=== PATIENT | female | born 1965 | race Caucasian/White ===

== ENCOUNTER 2019-02-18 03:24 | Outpatient (CLI) | payer BC | END 2019-02-18 23:59 | disposition home or self-care (01) | LOC: DIABETIC 03:24 | PROVIDERS: ATTEND Specialist | DX: E11.65 Type 2 diabetes mellitus with hyperglycemia (principal); Z79.82 Long term (current) use of aspirin; Z79.899 Other long term (current) drug therapy; Z88.8 Allergy status to other drugs, medicaments and biological substances | CPT/HCPCS: G0108 ==

== ENCOUNTER 2019-05-20 00:51 | Outpatient (CLI) | payer BC | END 2019-05-20 23:59 | disposition home or self-care (01) | LOC: DIABETIC 00:51 | PROVIDERS: ATTEND Specialist | DX: E11.65 Type 2 diabetes mellitus with hyperglycemia (principal) | CPT/HCPCS: G0108 ==

== ENCOUNTER 2019-08-26 11:46 | Emergency (ER) | payer BC ==
[~2019-08-26] VITALS: Ht 162.6 cm; Wt 78.0 kg
[2019-08-26 14:07] LABS: BASOPHILS % (AUTO) 0.4 % (0-1); EOSINOPHILS # (AUTO) 0.2 X10'3 (0-0.9); EOSINOPHILS % (AUTO) 1.5 % (0-6); HEMATOCRIT 41.8 % (35.0-45.0); HEMOGLOBIN 13.8 g/dl (12.0-16.0); LYMPHOCYTES % (AUTO) 19.7 % (21-51); MEAN CORPUSCULAR HEMOGLOBIN 29.2 PG (27.0-31.0); MEAN CORPUSCULAR HGB CONC 33.1 g/dL (33.0-36.5); MEAN PLATELET VOLUME 8.1 FL (7.4-10.4); MONOCYTES # (AUTO) 0.9 X10'3 (0-0.9); MONOCYTES % (AUTO) 8.7 % (2-12); NEUTROPHILS # (AUTO) 7.2 X10'3 (1.8-7.7); NEUTROPHILS % (AUTO) 69.7 % (42-75); PLATELET COUNT 250 X10'3 (140-440); RED BLOOD COUNT 4.75 X10'6 (4.20-5.60); RED CELL DISTRIBUTION WIDTH 13.8 % (11.5-14.5); WHITE BLOOD COUNT 10.3 X10'3 (4.5-11.0)
[2019-08-26] MEDS ORDERED: normal saline 1000ML IV soln IVB ONE (14:20)
[2019-08-26] MEDS ORDERED: iohexol 300mg/ml 100ml inj. ONE (14:21)
[2019-08-26 14:22] LABS: ALANINE AMINOTRANSFERASE 16 U/L (12-78); ALBUMIN 3.3 G/DL (3.4-5.0); ALBUMIN/GLOBULIN RATIO 0.9 (1.1-1.5); ALKALINE PHOSPHATASE 30 IU/L (46-116); ANION GAP 9 (8-16); ASPARTATE AMINO TRANSFERASE 9 U/L (10-37); BILIRUBIN,TOTAL 0.4 MG/DL (0.1-1.0); BLOOD UREA NITROGEN 21 MG/DL (7-18); BUN/CREATININE RATIO 29.6 (6.6-38.0); CALCIUM 9.4 MG/DL (8.5-10.1); CHLORIDE 102 MMOL/L (99-107); CREATININE 0.71 MG/DL (0.40-0.90); GLUCOSE 262 MG/DL (70-104); POTASSIUM 4.4 MMOL/L (3.5-5.1); SODIUM 138 MMOL/L (135-145); TOTAL CARBON DIOXIDE 26.9 MMOL/L (24-32); TOTAL PROTEIN 7.1 G/DL (6.4-8.2); eGFR 86 ML/MIN
[2019-08-26] MEDS ORDERED: ampicillin/sulbac 3gm/NS 100ml 100 ML IV ONE (14:54)
[2019-08-26] MEDS ORDERED: MESSAGE TO NURSING PO ONE (14:55)
[2019-08-26] MEDS ORDERED: NAPR-56 PO (14:55)
[2019-08-26] MEDS ORDERED: CEPH500C5 PO (14:55)
[2019-08-26] MEDS ORDERED: ketorolac tromethamine 15mg/ml inj. IV ONE (15:05)
[2019-08-26 16:42] VITALS: BP 144/83
[2019-08-26 16:58] LABS: CLARITY,URINE CLEAR (Clear); COLOR,URINE YELLOW (Yellow); GLUCOSE, URINE >=1000 mg/dl (Neg); KETONES,URINE NEGATIVE (Neg); LEUKOCYTE ESTERASE ,URINE NEGATIVE (Neg); NITRITES, URINE NEGATIVE (Neg); OCCULT BLOOD,URINE NEGATIVE (Neg); PROTEIN,URINE NEGATIVE (Neg); UROBILINOGEN,URINE 0.2 E.U/dL (0.2-1.0)
[2019-08-26 17:23] LABS: UA COLLECTION TYPE CLN CATCH MIDSTREAM
[2019-08-26 17:24] LABS: BACTERIA,URINE NONE SEEN /HPF (Neg); RBC,URINE NONE SEEN /HPF (0-2); SQUAMOUS EPITHELIAL CELL,UR FEW /LPF (FEW); WBC,URINE 0-4 /HPF (0-4)
== END 2019-08-26 16:45 | disposition home or self-care (01) ==
LOC: ER 11:47
DX: K91.89 Other postprocedural complications and disorders of digestive system (principal); L03.316 Cellulitis of umbilicus; R10.9 Unspecified abdominal pain; E78.00 Pure hypercholesterolemia, unspecified; E11.9 Type 2 diabetes mellitus without complications; Z90.710 Acquired absence of both cervix and uterus; Z98.890 Other specified postprocedural states; Z79.2 Long term (current) use of antibiotics; Z79.899 Other long term (current) drug therapy; Y83.8 Other surgical procedures as the cause of abnormal reaction of the patient, or of later complication, without mention of misadventure at the time of the procedure; Y92.89 Other specified places as the place of occurrence of the external cause
CPT/HCPCS: 36415; 74177; 80053; 81001; 85025; 96365; 96375; 99285; J1885; J7030; Q9967; J0295

== ENCOUNTER 2022-12-25 08:59 | Inpatient (IN) | payer BC ==
[2022-12-16 15:31] LABS: BASOPHILS # (AUTO) 0.1 X10'3 (0-0.2); BASOPHILS % (AUTO) 0.8 % (0-1); EOSINOPHILS # (AUTO) 0.1 X10'3 (0-0.9); EOSINOPHILS % (AUTO) 0.6 % (0-6); LYMPHOCYTES % (AUTO) 17.6 % (21-51); MEAN CORPUSCULAR HEMOGLOBIN 31.1 PG (27.0-31.0); MEAN CORPUSCULAR HGB CONC 33.4 g/dL (33.0-36.5); MEAN PLATELET VOLUME 7.8 FL (7.4-10.4); MONOCYTES # (AUTO) 0.8 X10'3 (0-0.9); MONOCYTES % (AUTO) 7.3 % (2-12); NEUTROPHILS # (AUTO) 8.2 X10'3 (1.8-7.7); NEUTROPHILS % (AUTO) 73.7 % (42-75); PRE OP HEMATOCRIT 40.5 % (35.0-45.0); PRE OP HEMOGLOBIN 13.5 g/dL (12.0-16.0); PRE OP PLATELET COUNT 318 X10'3 (140-440); PRE OP WHITE BLOOD COUNT 11.1 10'3 (4.8-10.8); RED BLOOD COUNT 4.35 X10'6 (4.20-5.60); RED CELL DISTRIBUTION WIDTH 13.8 % (11.5-14.5)
[2022-12-16 15:47] LABS: ALBUMIN 4.2 G/DL (3.4-5.0); ALBUMIN/GLOBULIN RATIO 1.1 (1.1-1.5); ALKALINE PHOSPHATASE 29 IU/L (46-116); BLOOD UREA NITROGEN 17 MG/DL (7-18); CALCIUM 9.6 MG/DL (8.5-10.1); CHLORIDE 101 MMOL/L (99-107); CREATININE 0.85 MG/DL (0.40-0.90); PRE OP ALT 35 U/L (30-65); PRE OP ANION GAP 11 (8-16); PRE OP AST 19 U/L (10-37); PRE OP BILIRUB, TOTAL 0.5 MG/DL (0.0-1.0); PRE OP GLUCOSE 103 MG/DL (70-104); PRE OP POTASSIUM 4.1 MMOL/L (3.4-5.1); PRE OP SODIUM 138 MMOL/L (135-145); TOTAL CARBON DIOXIDE 26.1 MMOL/L (24-32); TOTAL PROTEIN 7.9 G/DL (6.4-8.2); eGFR 69 ML/MIN
[2022-12-16 16:32] LABS: HEMOGLOBIN A1C 7.3 % (4.5-6.2)
[~2022-12-25] VITALS: Ht 162.6 cm; Wt 81.0 kg
[2022-12-25] VITALS (30 sets, daily range): BP systolic 113–142; BP diastolic 60–84; PULSE 88–116; RESP 11–18; TEMP 97.4–98; O2SAT 89–100
[~2022-12-25 08:59] MED LIST: GLYB5TAB7 PO; INSU300I SQ; MELA10TA2 PO; METF-900 PO; PANT40TA54 PO; RISA150P SQ; ROSU10TA28 PO; SPIR50TA5 PO; TIRZ7.5P SQ; cefazolin 2gm/D5W 100mL 100 ML IV ONE; famotidine 20mg tablet PO ONE; ringers solution, lacted 1,000 ML IV SCH; tranexamic acid inj. 1,000 MG in normal saline IV soln 100ML IV ONE; vancomycin 1,500 MG in NS 300ml IV soln IV ONE
[2022-12-25] MEDS ORDERED: morphine 4 MG/ML inj SYRINge IV ONE (11:16)
[2022-12-25] MEDS ORDERED: vancomycin 1,000mg inj ONE (11:17)
[2022-12-25] MEDS ORDERED: epiNEPHrine 1 mg/ml inj ONE (11:17)
[2022-12-25] MEDS ORDERED: ROPIVAcaine 0.5% (5mg/ml) 30ml vial ONE ×2 (11:17→11:45)
[2022-12-25] MEDS ORDERED: MIDAZolam 1 MG/ML 5ML VIAL ONE (11:43)
[2022-12-25] MEDS ORDERED: fentaNYL /PF 50mcg/ml 5ml ampule ONE (11:43)
[2022-12-25] MEDS ORDERED: propofol inj 20 ML IV ONE ×2 (11:45→11:46)
[2022-12-25] MEDS ORDERED: LIDOcaine 2% (20mg/ml) 5ml vial ONE (11:45)
[2022-12-25] MEDS ORDERED: sevoflurane 250ml liquid IH ONE (12:06)
[2022-12-25] MEDS ORDERED: dexamethasone sod phosphate 10mg/ml inj ONE (12:06)
[2022-12-25] MEDS ORDERED: ondansetron/PF 4mg/2ml inj ONE (12:38)
[2022-12-25] MEDS ORDERED: acetaminophen 1,000mg/100ml IV 100 ML IV ONE (12:52)
[2022-12-25] MEDS ORDERED: ketorolac trometh. 30mg/ml inj. ONE (12:52)
[2022-12-25] MEDS ORDERED: ROPIVAcaine 0.5% (5mg/ml) 30ml vial IJ ONE ×2 (12:54→15:18)
[2022-12-25] MEDS ORDERED: ringers solution, lacted 1,000 ML IV SCH (13:20)
[2022-12-25] MEDS ORDERED: morphine 2 MG/ML inj. syringe IV PRN (13:20)
[2022-12-25] MEDS ORDERED: ondansetron/PF 4mg/2ml inj IV PRN ×2 (13:20→15:30)
[2022-12-25] MEDS ORDERED: hydrALAZINE 20mg/ml inj. IV PRN (13:20)
[2022-12-25] MEDS ORDERED: labetalol 20mg/4ml (5mg/ml) syringe IV PRN (13:20)
[2022-12-25] MEDS ORDERED: fentaNYL/PF 50MCG/1 ML 2ML syringe IV PRN ×2 (13:20)
[2022-12-25] MEDS ORDERED: ROPIVAcaine 0.2% (10 MG/5 ML) BOLUS INJECTION ADDCANAL PRN (13:20)
[2022-12-25] MEDS ORDERED: LIDOcaine 0.5% (5mg/ml) 50ml vial ONE (13:53)
[2022-12-25] MEDS ORDERED: labetalol 20mg/4ml (5mg/ml) syringe IV ONE (14:06)
--- NOTE | 2022-12-25 15:12 | NUR ---
Received from OR via HOSPITAL BED TO RR 6, accompanied by Anesthesiologist GIOVANNI and report given by Anesthesiologist. PT PRESENTS ON 6L VIA MASK. NO S/S OF DISTRESS. LEFT WRIST DRESSING CDI, ICE AND ELEVATED. LEFT KNEE DRESSING CDI, ICE APPLIED AND ELEVATED. LR RUNNING THRU PIV. SCD'S ON. WILL CONTINUE TO ASSESS
[2022-12-25] MEDS ORDERED: oxyCODONE IR 5mg (immed. release) tablet PO PRN (15:30)
[2022-12-25] MEDS ORDERED: bisacodyl 10mg suppository rectal RC PRN (15:30)
[2022-12-25] MEDS ORDERED: diphenhydrAMINE 25mg capsule PO PRN ×2 (15:30)
[2022-12-25] MEDS ORDERED: acetaminophen 325mg tablet PO PRN (15:30)
[2022-12-25] MEDS ORDERED: naloxone 0.4 mg/ml inj IV PRN (15:30)
[2022-12-25] MEDS ORDERED: magnesium hydroxide 30ml (MOM) UD suspension PO PRN (15:30)
[2022-12-25] MEDS ORDERED: HYDROmorphone inj. 0.5 MG/0.5 ML DISP.SYRIN IV PRN (15:30)
[2022-12-25] MEDS: ROPIVAcaine 0.2%/PF PUMP/bolus 545 ML ADDCANAL SCH (15:53)
[2022-12-25] MEDS: morphine 4 MG/ML inj SYRINge IV PRN ×2 (16:01→16:31)
[2022-12-25] MEDS: ceFAZolin/D5W- 1GM premix 50 ML IV SCH (17:22)
--- NOTE | 2022-12-25 18:05 | NUR ---
Received patient report from Pearl ERAZO via phone. All questions answered. Pearl will hold patient til 1830 due to shift change then bring patient up.
--- NOTE | 2022-12-25 18:30 | NUR ---
Patient in room ORTHO 4023. I have received report from KACEY Nelson and had the opportunity to ask questions and assume patient care.
--- NOTE | 2022-12-25 18:32 | NUR ---
PT STABLE FOR TRANSFER PER MD ORDERS. REPORT CALLED TO KACEY ORTIZ, (TAKING REPORT FOR PRIMARY NURSE JESSA). ALL QUESTIONS, COMMENTS AND CONCERNS WERE ANSWERED AT THIS TIME. PAIN IS TOLERABLE PER PATIENT. NO S/S DISTRESS NOTED. DRESSINGS TO LEFT WRIST AND LEFT KNEE UNCHANGED AND ICE STILL APPLIED. PATIENT TAKEN TO ORTHO FLOOR ROOM 4026J WITH ALL BELONGINGS AND HOOKED UP TO ALL MONITORS IN ROOM AND REPORT GIVEN TO KACEY GERMAIN WHO HAS TAKEN OVER PATIENT CARE. TXA WILL BE BROUGHT UP TO THE FLOOR FOR ADMINISTRATION.
--- NOTE | 2022-12-25 18:35 | NUR ---
Problems reprioritized. Patient report given, questions answered & plan of care reviewed with Yvrose ERAZO, patient still not on the floor room set up .
[2022-12-25] MEDS ORDERED: tranexamic acid inj. 800 MG in normal saline 100ml IV soln 92 ML IV ONE (19:00)
[2022-12-25] MEDS: potassium Cl 20mEq in NS 1,000 ML IV SCH (19:36)
[2022-12-25] MEDS ORDERED: vancomycin/NS 1 GM ADD-VANTAGE 250 ML IV SCH (20:00)
[2022-12-25] MEDS: gabapentin 300mg capsule PO SCH (21:39)
[2022-12-25] MEDS: acetaminophen 325mg tablet PO SCH (21:39)
[2022-12-25] MEDS: sennosides 8.6mg tablet PO SCH (21:40)
[2022-12-25] MEDS: oxyCODONE IR 5mg (immed. release) tablet PO PRN (21:54)
[2022-12-26] VITALS (7 sets, daily range): BP systolic 101–122; BP diastolic 47–71; PULSE 70–113; RESP 15–17; TEMP 97.8–98.9; O2SAT 93–97
[2022-12-26] MEDS: ceFAZolin/D5W- 1GM premix 50 ML IV SCH (00:45)
[2022-12-26] MEDS: potassium Cl 20mEq in NS 1,000 ML IV SCH (02:00)
[2022-12-26] MEDS: acetaminophen 325mg tablet PO SCH ×4 (02:15→20:03)
[2022-12-26] MEDS: oxyCODONE IR 5mg (immed. release) tablet PO PRN ×2 (02:16→07:37)
--- NOTE | 2022-12-26 06:30 | NUR ---
Patient in room ORTHO 4023. I have received report from Yvrose and had the opportunity to ask questions and assume patient care.
--- NOTE | 2022-12-26 06:30 | NUR ---
Problems reprioritized. Patient report given, questions answered & plan of care reviewed with KACEY Barrera.
[2022-12-26] MEDS: gabapentin 300mg capsule PO SCH ×3 (07:13→20:01)
[2022-12-26] MEDS: enoxaparin 40mg/0.4ml syringe SQ SCH (07:22)
[2022-12-26] MEDS ORDERED: normal saline 1000ml 1,000 ML IV ONE (10:40)
--- NOTE | 2022-12-26 11:07 | NUR ---
DM/Joint surgery consults: Pt s/p L knee surgery, L index finger trigger finger release, and L dorsal cheilectomy of the third carpal metacarpal joint hx T2DM A1C 7.3% w/ CGM per EMR. Pt/family seen by RD at bedside for written/verbal high protein/DM diet eds w/ RD contact information provided. Pt reports checks Glu routinely w/ CGM just started on new DM med w/ past two A1C's lowest it's ever been though does not have much knowledge regarding DM diet. Pt reports has had occasional lows in early AM has glucose tabs and candies/juice at bedside; RD encouraged pt to f/u w/ PCP if increase in these episodes. Pt reports doesn't eat breakfast; RD reviewed meal frequency, meal planning strategies, nutrition facts label reading, and carb portions w/ pt/family. RD encouraged pt/family to contact dietitian's office if further nutrition questions/concerns. Pt reports L hand is dominant hand though w/ surgery requests more finger foods, dislikes caffeine/broccoli/asparagus/corn/grean beans, and likes diet soda-dietary notified of preferences. Noted pt on regular diet; RD d/w RN regarding change to carb controlled diet if MD agreeable- now changed in EMR. Rec: 1. continue carb controlled diet; finger foods for ease of PO Addendum: 12/26/22 at [address] Amended: Links added.
[2022-12-26] MEDS: HYDROmorphone 1 mg/ml syringe IV PRN ×3 (13:18→21:32)
[2022-12-26] MEDS ORDERED: DEXTROSE 15 GM of carb/4 tabs (each vial/BOTTLE has 4 tablets) PO PRN ×2 (18:05)
[2022-12-26] MEDS ORDERED: MESSAGE TO PHARMACY PO ONE (18:05)
[2022-12-26] MEDS ORDERED: glucagon, human recombinant 1mg kit SUBCUT PRN (18:05)
[2022-12-26] MEDS ORDERED: dextrose 50%-water 50ml dispensing syringe IV PRN ×2 (18:05)
--- NOTE | 2022-12-26 18:30 | NUR ---
Patient in room ORTHO 4023. I have received report from KACEY Barrera and had the opportunity to ask questions and assume patient care.
--- NOTE | 2022-12-26 18:39 | NUR ---
Problems reprioritized. Patient report given, questions answered & plan of care reviewed with
[2022-12-26] MEDS: celeCOXIB 100mg capsule PO SCH (20:02)
[2022-12-26] MEDS: sennosides 8.6mg tablet PO SCH (20:03)
[2022-12-26] MEDS: insulin Lispro (HumaLOG) vial - multi-dose SQ SCH (20:10)
[2022-12-26] MEDS ORDERED: insulin glargine (Lantus) pen - multi-dose SQ SCH (21:00)
[2022-12-27] MEDS: acetaminophen 325mg tablet PO SCH ×3 (01:50→13:32)
[2022-12-27] MEDS: HYDROmorphone 1 mg/ml syringe IV PRN ×3 (01:50→11:45)
--- NOTE | 2022-12-27 06:26 | NUR ---
Problems reprioritized. Patient report given, questions answered & plan of care reviewed with KACEY Barrera.
[2022-12-27 06:51] VITALS: BP 124/65; PULSE 96; RESP 15; TEMP 98.3; O2SAT 99
[2022-12-27 07:00] VITALS: RESP 16; O2SAT 94
[2022-12-27] MEDS: gabapentin 300mg capsule PO SCH ×2 (07:56→13:32)
[2022-12-27] MEDS: celeCOXIB 100mg capsule PO SCH (07:56)
[2022-12-27] MEDS: enoxaparin 40mg/0.4ml syringe SQ SCH (07:56)
[2022-12-27] MEDS: insulin Lispro (HumaLOG) vial - multi-dose SQ SCH ×2 (09:38→13:44)
[2022-12-27 10:23] VITALS: BP 109/58; PULSE 97; RESP 14; TEMP 97.1; O2SAT 91
[2022-12-27 11:45] VITALS: RESP 18
[2022-12-27] MEDS: ROPIVAcaine 0.2%/PF PUMP/bolus 545 ML ADDCANAL SCH (14:53)
[2022-12-27] MEDS ORDERED: acetaminophen 325mg tablet PO PRN (15:30)
--- NOTE | 2022-12-27 16:33 | NUR ---
Pt discharged home with family. All belongings sent with pt. IV removed from pt. Pt left in stable condition
== END 2022-12-27 15:55 | disposition home or self-care (01) | DRG 470 ==
LOC: PAS 08:59 → ORTHO 4S 15:32
PROVIDERS: ADMIT Orthopaedic Surgery; ATTEND Orthopaedic Surgery
PROC: 0LN80ZZ Release Left Hand Tendon, Open Approach (ICD-10-PCS; 2022-12-25)
PROC: 0QBP0ZZ Excision of Left Metatarsal, Open Approach (ICD-10-PCS; 2022-12-25)
PROC: 0QSP04Z Reposition Left Metatarsal with Internal Fixation Device, Open Approach (ICD-10-PCS; 2022-12-25)
PROC: 3E0T3BZ Introduction of Anesthetic Agent into Peripheral Nerves and Plexi, Percutaneous Approach (ICD-10-PCS; 2022-12-25)
PROC: 3E0T33Z Introduction of Anti-inflammatory into Peripheral Nerves and Plexi, Percutaneous Approach (ICD-10-PCS; 2022-12-25)
PROC: 0SRD0JA Replacement of Left Knee Joint with Synthetic Substitute, Uncemented, Open Approach (ICD-10-PCS; principal; 2022-12-25 12:06)
DX: M17.12 Unilateral primary osteoarthritis, left knee (principal); M65.322 Trigger finger, left index finger; E11.9 Type 2 diabetes mellitus without complications
CPT/HCPCS: Z7506; Z7508; 36415; 73560; 80053; 82948; 83036; 85025; 87081; 93005; 97110; 97116; 97161; 97530; A4215; A4618; A6253; A6258; A6446; A6449; A7000; C1776; G0378; J0131; J0171; J0690; J1100; J1170; J1650; J1815; J1885; J2250; J2270; J2405; J2704; J2795; J3010; J3370; J3480; J3490; J7120; Q0163

== ENCOUNTER 2023-01-01 18:38 | Inpatient (IN) | payer BC ==
[~2023-01-01] VITALS: Ht 162.6 cm; Wt 81.4 kg
[~2023-01-01 18:38] MED LIST changes: -cefazolin 2gm/D5W 100mL 100 ML IV ONE; -famotidine 20mg tablet PO ONE; -ringers solution, lacted 1,000 ML IV SCH; -tranexamic acid inj. 1,000 MG in normal saline IV soln 100ML IV ONE; -vancomycin 1,500 MG in NS 300ml IV soln IV ONE
[2023-01-01 20:12] LABS: MEAN CORPUSCULAR HGB CONC 33.7 g/dL (33.0-36.5); MEAN PLATELET VOLUME 7.2 FL (7.4-10.4); WHITE BLOOD COUNT 10.2 X10'3 (4.5-11.0)
[2023-01-01 20:13] LABS: BASOPHILS # (AUTO) 0.1 X10'3 (0-0.2); BASOPHILS % (AUTO) 0.6 % (0-1); EOSINOPHILS # (AUTO) 0.2 X10'3 (0-0.9); EOSINOPHILS % (AUTO) 2.2 % (0-6); HEMATOCRIT 34.9 % (35.0-45.0); HEMOGLOBIN 11.8 g/dl (12.0-16.0); LYMPHOCYTES # (AUTO) 1.9 X10'3 (1.1-4.8); LYMPHOCYTES % (AUTO) 19.1 % (21-51); MEAN CORPUSCULAR HEMOGLOBIN 31.3 PG (27.0-31.0); MONOCYTES # (AUTO) 1.1 X10'3 (0-0.9); MONOCYTES % (AUTO) 10.6 % (2-12); NEUTROPHILS # (AUTO) 6.9 X10'3 (1.8-7.7); NEUTROPHILS % (AUTO) 67.5 % (42-75); PLATELET COUNT 370 X10'3 (140-440); RED BLOOD COUNT 3.75 X10'6 (4.20-5.60); RED CELL DISTRIBUTION WIDTH 14.2 % (11.5-14.5)
[2023-01-01 20:22] LABS: ALANINE AMINOTRANSFERASE 43 U/L (12-78); ALBUMIN 3.5 G/DL (3.4-5.0); ALBUMIN/GLOBULIN RATIO 0.9 (1.1-1.5); ALKALINE PHOSPHATASE 33 IU/L (46-116); ANION GAP 9 (8-16); ASPARTATE AMINO TRANSFERASE 43 U/L (10-37); BILIRUBIN,TOTAL 0.5 MG/DL (0.1-1.0); BLOOD UREA NITROGEN 13 MG/DL (7-18); BUN/CREATININE RATIO 17.8 (10.0-20.0); CALCIUM 9.7 MG/DL (8.5-10.1); CHLORIDE 101 MMOL/L (99-107); CREATININE 0.73 MG/DL (0.40-0.90); GLUCOSE 75 MG/DL (70-104); POTASSIUM 3.9 MMOL/L (3.5-5.1); SODIUM 139 MMOL/L (135-145); TOTAL CARBON DIOXIDE 28.6 MMOL/L (24-32); TOTAL PROTEIN 7.5 G/DL (6.4-8.2); eCRCL 75 ML/MIN; eGFR 83 ML/MIN
[2023-01-01 20:37] LABS: PLATELET ESTIMATE NORMAL; POLYCHROMASIA FEW
--- NOTE | 2023-01-01 23:37 | NUR ---
re checked blood glucose and provided 2 apple juices and grahm crackers patient is asymptomatic
--- NOTE | 2023-01-02 01:05 | NUR ---
provided patient 2 more apple juices and trurkey sandwich for low blood sugar patient Aox4 and GCS of 15 in [facility]
--- NOTE | 2023-01-02 01:22 | NUR ---
PT REQUESTS TO BE SEEN AND ADMITTED D/T RECENT SX LTKA AND L HAND. PT STATES SHE NEEDS TO BE ADMITTED SO THAT SHE CAN QUALIFY TO GO TO [facility]. PT STATES, "MY BLOOD SUGAR KEEPS DROPPING AND I DON'T KNOW WHY." THIS NURSE ASKED IF SHE IS EATING REGULARLY PT STATES, "NO BECAUSE NOBODY AT HOME WILL TAKE CARE OF ME." PT BECAME EMOTIONAL. PT ADMITS TO HAVING FAMILY AT HOME LIVING WITH HER. THIS NURSE OFFERED SUGGESTIONS LIKE KEEPING SNACKS AND DRINKS ON HER PERSON AT ALL TIMES. PT STATES, "I CANT HAVE FOOD IN MY ROOM IM IN MY BED DURING THE DAY." PT ADMITS THAT HER PMD AND INSURANCE COMPANY TOLD HER TO COME TO ED TO GET ADMITTED SO THAT SHE CAN QUALIFY FOR [facility] SERVICES. PT EDUCATED REGARDING MEETING MEDICAL CRITERIA FOR BEING ADMITTED. PT STATES, "I DO MEET CRITERIA BECAUSE MY BLOOD SUGAR KEEPS DROPPING." CURRENT BG 154. UPON NURSE AX PT ASKED IF SHE IS OR HAS BEEN EXPERIENCING PPP. PT DENIES. PPP FULLY EXPLAINED TO PT AND CONT TO DENY. PT IS ASYMPTOMATIC AT THIS TIME. A/O X4 ABLE TO CONVEY ALL NEEDS/ WANTS, VSS, DENIES PAIN, INDEPENDANT W/ TRANSFERS AND AMBULATION, CONTINENT OF B&B. CURRENTLY PRESCRIBED NORCO, CEPHALEXIN AND LOVENOX. PT ADMITS TO SELF ADMINISTRATION OF ALL MEDS W/ NO COMPLICATIONS.
[2023-01-02] MEDS ORDERED: morphine 4 MG/ML inj SYRINge IV ONE (03:25)
[2023-01-02] MEDS ORDERED: ondansetron/PF 4mg/2ml inj IV ONE (03:25)
[2023-01-02] MEDS ORDERED: normal saline 1000ml 1,000 ML IV ONE (03:30)
[2023-01-02] MEDS ORDERED: ketorolac trometh. 30mg/ml inj. IV ONE (03:30)
[2023-01-02] MEDS ORDERED: ketorolac tromethamine 15mg/ml inj. IV ONE (03:35)
[2023-01-02] MEDS ORDERED: iohexol 300mg/ml 100ml inj. ONE (03:49)
[2023-01-02 04:05] LABS: D-DIMER 1.22 MG/L FEU (0-0.50)
[2023-01-02] MEDS: MESSAGE TO NURSING PO SCH ×6 (04:10→09:10)
[2023-01-02] MEDS ORDERED: acetaminophen 650mg rectal suppository RC PRN (08:00)
[2023-01-02] MEDS ORDERED: potassium Cl 20 mEq SR tablet PO PRN ×2 (08:00)
[2023-01-02] MEDS ORDERED: magnesium Cl slow-release 64mg tablet PO PRN (08:00)
[2023-01-02] MEDS ORDERED: magnesium 2GM in 50ml NS 50 ML IV PRN (08:00)
[2023-01-02] MEDS ORDERED: ondansetron 4mg rapidly disintigrating tab PO PRN (08:00)
[2023-01-02] MEDS ORDERED: magnesium hydroxide 30ml (MOM) UD suspension PO PRN (08:00)
[2023-01-02] MEDS ORDERED: mag hydrox/Alum hydrox/simeth 30ml oral suspension PO PRN (08:00)
[2023-01-02] MEDS ORDERED: MESSAGE TO PHARMACY PO ONE ×2 (08:00→11:55)
[2023-01-02] MEDS ORDERED: insulin Lispro (HumaLOG) vial - multi-dose SQ SCH (08:00)
[2023-01-02] MEDS: K and/or MAG REPLACEMENT MC SCH ×2 (08:00→20:00)
[2023-01-02] MEDS ORDERED: glucagon, human recombinant 1mg kit SUBCUT PRN ×2 (08:00→11:55)
[2023-01-02] MEDS: normal saline 1000ml 1,000 ML IV SCH ×2 (08:00→21:41)
[2023-01-02] MEDS ORDERED: DEXTROSE 15 GM of carb/4 tabs (each vial/BOTTLE has 4 tablets) PO PRN ×4 (08:00→11:55)
[2023-01-02] MEDS ORDERED: magnesium 4gm in 100ml NS 100 ML IV PRN (08:00)
[2023-01-02] MEDS ORDERED: HYDROcodone/acetaminophen 5mg/325mg tablet PO PRN (08:00)
[2023-01-02] MEDS ORDERED: dextrose 50%-water 50ml dispensing syringe IV PRN ×4 (08:00→11:55)
[2023-01-02] MEDS ORDERED: acetaminophen 325mg tablet PO PRN (08:00)
[2023-01-02] MEDS ORDERED: potassium Cl 40MEQ/1/2NS 520ml 520 ML IV PRN (08:00)
[2023-01-02] MEDS: HYDROcodone/acetaminophen 10/325mg tab PO PRN ×3 (09:40→21:40)
[2023-01-02] MEDS: docusate sod 100mg capsule PO SCH ×2 (09:40→21:38)
[2023-01-02 09:58] LABS: MAGNESIUM 1.6 MG/DL (1.5-2.4); POTASSIUM 3.7 MMOL/L (3.5-5.1)
[2023-01-02] MEDS ORDERED: ENOX40SY7 SUBCUT (10:28)
[2023-01-02] MEDS ORDERED: CEPH250T PO (10:28)
[2023-01-02] MEDS ORDERED: HYDR-3973 PO (10:28)
--- NOTE | 2023-01-02 11:09 | NUR ---
assisting RN with pt care, gave pt ice pack for left knee replacement done on 12/25/22, pt refusing MRSA swab as she had one one week ago. Pt amb with walker to restroom, no assistance needed. Waiting for room assignment
--- NOTE | 2023-01-02 11:14 | NUR ---
ESSAGE: Camila Garcia, S in ER room 9 med rec is completed. She is on lovenox (for 9 more days) and cephalexin (for 7 days, started 9/8 pm) for post op knee replacement, Maddi GALICIA RN
[2023-01-02] MEDS ORDERED: MESSAGE TO NURSING PO SCH (13:03)
[2023-01-02 14:50] LABS: HEMOGLOBIN A1C 7.3 % (4.5-6.2)
--- NOTE | 2023-01-02 16:17 | NUR ---
Noted pt with T2DM, well controlled with A1c 7.3% which is stable with A1c 7.3% 12/16 per EMR. Pt and family seen at bedside by TOM 12/26 at recent admit for written and verbal high protein and DM nutrition therapy educations with RD contact information provided. No further education planned at this time. Will remain available. Addendum: 01/02/23 at [address] Amended: Links added.
[2023-01-02] MEDS: cephalexin 250mg capsule PO SCH (16:27)
[2023-01-02 18:00] VITALS: BP 139/78; PULSE 94; RESP 16; TEMP 97.6; O2SAT 98
--- NOTE | 2023-01-02 18:23 | NUR ---
Problems reprioritized. Patient report given, questions answered & plan of care reviewed with KACEY Booth.
[2023-01-02 20:00] VITALS: RESP 18; O2SAT 96
[2023-01-02] MEDS ORDERED: insulin glargine (Lantus) pen - multi-dose SQ SCH (21:00)
[2023-01-02] MEDS: temazepam 15mg capsule PO PRN (21:39)
[2023-01-02] MEDS: atorvastatin 20mg tablet PO SCH (21:40)
[2023-01-02 22:00] VITALS: BP 158/71; PULSE 95; RESP 16; TEMP 97.9; O2SAT 97
[2023-01-02] MEDS: insulin glargine (Lantus) pen - multi-dose SQ SCH (22:00)
[2023-01-03] MEDS: cephalexin 250mg capsule PO SCH ×4 (00:29→23:06)
[2023-01-03] MEDS: HYDROcodone/acetaminophen 10/325mg tab PO PRN ×5 (03:00→21:42)
[2023-01-03] MEDS: normal saline 1000ml 1,000 ML IV SCH ×2 (05:26→14:00)
[2023-01-03 06:00] VITALS: BP 159/73; PULSE 101; RESP 15; TEMP 97.2; O2SAT 96
[2023-01-03 06:37] LABS: BASOPHILS % (AUTO) 0.6 % (0-1); EOSINOPHILS # (AUTO) 0.2 X10'3 (0-0.9); EOSINOPHILS % (AUTO) 2.1 % (0-6); HEMATOCRIT 32.2 % (35.0-45.0); HEMOGLOBIN 10.6 g/dl (12.0-16.0); LYMPHOCYTES # (AUTO) 2.1 X10'3 (1.1-4.8); MEAN CORPUSCULAR HEMOGLOBIN 30.6 PG (27.0-31.0); MEAN CORPUSCULAR HGB CONC 32.9 g/dL (33.0-36.5); MEAN CORPUSCULAR VOLUME 93.1 FL (78-98); MEAN PLATELET VOLUME 7.1 FL (7.4-10.4); MONOCYTES # (AUTO) 1.1 X10'3 (0-0.9); MONOCYTES % (AUTO) 13.2 % (2-12); NEUTROPHILS # (AUTO) 4.9 X10'3 (1.8-7.7); NEUTROPHILS % (AUTO) 59.1 % (42-75); PLATELET COUNT 319 X10'3 (140-440); RED BLOOD COUNT 3.45 X10'6 (4.20-5.60); RED CELL DISTRIBUTION WIDTH 14.1 % (11.5-14.5); WHITE BLOOD COUNT 8.2 X10'3 (4.5-11.0)
--- NOTE | 2023-01-03 06:40 | NUR ---
Problems reprioritized. Patient report given, questions answered & plan of care reviewed with KALEIGH ERAZO.
--- NOTE | 2023-01-03 06:46 | NUR ---
Patient in room ORTHO 4020. I have received report from KACEY Booth and had the opportunity to ask questions and assume patient care.
[2023-01-03 06:52] LABS: ALANINE AMINOTRANSFERASE 34 U/L (12-78); ALBUMIN 2.8 G/DL (3.4-5.0); ALBUMIN/GLOBULIN RATIO 0.8 (1.1-1.5); ALKALINE PHOSPHATASE 23 IU/L (46-116); ANION GAP 6 (8-16); ASPARTATE AMINO TRANSFERASE 25 U/L (10-37); BILIRUBIN,TOTAL 0.5 MG/DL (0.1-1.0); BLOOD UREA NITROGEN 8 MG/DL (7-18); BUN/CREATININE RATIO 13.1 (10.0-20.0); CALCIUM 8.5 MG/DL (8.5-10.1); CHLORIDE 107 MMOL/L (99-107); CREATININE 0.61 MG/DL (0.40-0.90); GLUCOSE 158 MG/DL (70-104); MAGNESIUM 1.6 MG/DL (1.5-2.4); POTASSIUM 3.8 MMOL/L (3.5-5.1); SODIUM 141 MMOL/L (135-145); TOTAL CARBON DIOXIDE 28.2 MMOL/L (24-32); TOTAL PROTEIN 6.1 G/DL (6.4-8.2); eCRCL 90 ML/MIN; eGFR > 90 ML/MIN
[2023-01-03] MEDS: docusate sod 100mg capsule PO SCH ×2 (07:21→21:42)
[2023-01-03] MEDS: enoxaparin 40mg/0.4ml syringe SUBCUT SCH (07:23)
[2023-01-03] MEDS: pantoprazole 40mg Tablet.DR PO SCH (07:23)
[2023-01-03] MEDS: spironolactone 50 MG tablet PO SCH (07:24)
[2023-01-03] MEDS: K and/or MAG REPLACEMENT MC SCH ×2 (08:00→20:00)
--- NOTE | 2023-01-03 08:56 | NUR ---
Diabetes consult: A1c has already been addressed; see prior RD note. Addendum: 01/03/23 at [address] Amended: Links added.
[2023-01-03] MEDS: acetaminophen 325mg tablet PO PRN (15:11)
[2023-01-03 18:00] VITALS: BP 130/67; PULSE 90; RESP 16; TEMP 97.9; O2SAT 97
--- NOTE | 2023-01-03 18:47 | NUR ---
Problems reprioritized. Patient report given, questions answered & plan of care reviewed with KACEY Booth.
--- NOTE | 2023-01-03 18:50 | NUR ---
Patient in room ORTHO 4020. I have received report from KALEIGH ERAZO and had the opportunity to ask questions and assume patient care.
[2023-01-03 20:00] VITALS: RESP 18; O2SAT 98
[2023-01-03] MEDS: temazepam 15mg capsule PO PRN (21:40)
[2023-01-03] MEDS: atorvastatin 20mg tablet PO SCH (21:40)
[2023-01-03] MEDS: ondansetron/PF 4mg/2ml inj IV PRN (21:42)
[2023-01-03 22:00] VITALS: BP 130/76; PULSE 75; RESP 18; TEMP 98.1; O2SAT 94
[2023-01-03] MEDS: insulin glargine (Lantus) pen - multi-dose SQ SCH (23:03)
[2023-01-04] VITALS (7 sets, daily range): BP systolic 123–158; BP diastolic 72–87; PULSE 92–98; RESP 16–18; TEMP 97.7–98.3; O2SAT 95–97
[2023-01-04] MEDS: normal saline 1000ml 1,000 ML IV SCH
[2023-01-04] MEDS: acetaminophen 325mg tablet PO PRN ×2 (00:26→19:06)
[2023-01-04] MEDS: HYDROcodone/acetaminophen 10/325mg tab PO PRN ×3 (04:40→22:06)
--- NOTE | 2023-01-04 06:14 | NUR ---
Problems reprioritized. Patient report given, questions answered & plan of care reviewed with NORMA ERAZO.
--- NOTE | 2023-01-04 06:30 | NUR ---
Patient in room ORTHO 4020. I have received report from KACEY Booth and had the opportunity to ask questions and assume patient care.
[2023-01-04 06:33] LABS: ALANINE AMINOTRANSFERASE 33 U/L (12-78); ALBUMIN 3.1 G/DL (3.4-5.0); ALBUMIN/GLOBULIN RATIO 0.9 (1.1-1.5); ALKALINE PHOSPHATASE 26 IU/L (46-116); ANION GAP 8 (8-16); ASPARTATE AMINO TRANSFERASE 21 U/L (10-37); BASOPHILS % (AUTO) 0.4 % (0-1); BILIRUBIN,TOTAL 0.6 MG/DL (0.1-1.0); BLOOD UREA NITROGEN 6 MG/DL (7-18); BUN/CREATININE RATIO 10.2 (10.0-20.0); CALCIUM 9.1 MG/DL (8.5-10.1); CHLORIDE 105 MMOL/L (99-107); CREATININE 0.59 MG/DL (0.40-0.90); EOSINOPHILS # (AUTO) 0.2 X10'3 (0-0.9); EOSINOPHILS % (AUTO) 1.8 % (0-6); GLUCOSE 148 MG/DL (70-104); HEMATOCRIT 33.3 % (35.0-45.0); HEMOGLOBIN 11.1 g/dl (12.0-16.0); LYMPHOCYTES # (AUTO) 2.1 X10'3 (1.1-4.8); LYMPHOCYTES % (AUTO) 21.2 % (21-51); MAGNESIUM 1.8 MG/DL (1.5-2.4); MEAN CORPUSCULAR HEMOGLOBIN 30.7 PG (27.0-31.0); MEAN CORPUSCULAR HGB CONC 33.2 g/dL (33.0-36.5); MEAN CORPUSCULAR VOLUME 92.3 FL (78-98); MEAN PLATELET VOLUME 7.1 FL (7.4-10.4); NEUTROPHILS # (AUTO) 6.5 X10'3 (1.8-7.7); NEUTROPHILS % (AUTO) 66.6 % (42-75); PLATELET COUNT 308 X10'3 (140-440); POTASSIUM 3.5 MMOL/L (3.5-5.1); RED BLOOD COUNT 3.61 X10'6 (4.20-5.60); RED CELL DISTRIBUTION WIDTH 14.1 % (11.5-14.5); SODIUM 140 MMOL/L (135-145); TOTAL CARBON DIOXIDE 26.7 MMOL/L (24-32); TOTAL PROTEIN 6.6 G/DL (6.4-8.2); WHITE BLOOD COUNT 9.8 X10'3 (4.5-11.0); eCRCL 93 ML/MIN; eGFR > 90 ML/MIN
[2023-01-04] MEDS: K and/or MAG REPLACEMENT MC SCH ×2 (08:00→19:58)
[2023-01-04] MEDS: insulin Lispro (HumaLOG) vial - multi-dose SQ SCH ×3 (08:34→19:14)
[2023-01-04] MEDS: enoxaparin 40mg/0.4ml syringe SUBCUT SCH (08:35)
[2023-01-04] MEDS: spironolactone 50 MG tablet PO SCH (08:35)
[2023-01-04] MEDS: docusate sod 100mg capsule PO SCH ×2 (08:35→20:00)
[2023-01-04] MEDS: cephalexin 250mg capsule PO SCH ×2 (08:35→16:55)
[2023-01-04] MEDS: pantoprazole 40mg Tablet.DR PO SCH (08:35)
[2023-01-04] MEDS: lactose-reduced food (Ensure High Protein) 237ml bottle PO SCH ×2 (13:00→18:10)
--- NOTE | 2023-01-04 18:00 | NUR ---
Patient in room ORTHO 4020. I have received report from JEFF Maldonado and had the opportunity to ask questions and assume patient care.
--- NOTE | 2023-01-04 18:09 | NUR ---
Problems reprioritized. Patient report given, questions answered & plan of care reviewed with KACEY Gan.
[2023-01-04] MEDS: atorvastatin 20mg tablet PO SCH (20:01)
[2023-01-04] MEDS: insulin glargine (Lantus) pen - multi-dose SQ SCH (21:03)
[2023-01-04] MEDS: temazepam 15mg capsule PO PRN (22:06)
[2023-01-05] MEDS: cephalexin 250mg capsule PO SCH ×3 (00:08→16:22)
[2023-01-05] MEDS: acetaminophen 325mg tablet PO PRN ×2 (01:44→14:10)
[2023-01-05 05:00] VITALS: BP 122/67; PULSE 95; RESP 18; TEMP 98.1; O2SAT 96
--- NOTE | 2023-01-05 06:17 | NUR ---
Problems reprioritized. Patient report given, questions answered & plan of care reviewed with KACEY Curtis.
[2023-01-05 06:27] LABS: BASOPHILS % (AUTO) 0.5 % (0-1); EOSINOPHILS # (AUTO) 0.1 X10'3 (0-0.9); EOSINOPHILS % (AUTO) 1.3 % (0-6); HEMATOCRIT 33.1 % (35.0-45.0); HEMOGLOBIN 11.1 g/dl (12.0-16.0); LYMPHOCYTES # (AUTO) 2.2 X10'3 (1.1-4.8); LYMPHOCYTES % (AUTO) 23.2 % (21-51); MEAN CORPUSCULAR HEMOGLOBIN 30.9 PG (27.0-31.0); MEAN CORPUSCULAR HGB CONC 33.5 g/dL (33.0-36.5); MEAN CORPUSCULAR VOLUME 92.4 FL (78-98); MEAN PLATELET VOLUME 7.3 FL (7.4-10.4); MONOCYTES % (AUTO) 10.8 % (2-12); NEUTROPHILS # (AUTO) 6.1 X10'3 (1.8-7.7); NEUTROPHILS % (AUTO) 64.2 % (42-75); PLATELET COUNT 334 X10'3 (140-440); RED BLOOD COUNT 3.58 X10'6 (4.20-5.60); RED CELL DISTRIBUTION WIDTH 13.9 % (11.5-14.5); WHITE BLOOD COUNT 9.6 X10'3 (4.5-11.0)
[2023-01-05 06:59] LABS: ALANINE AMINOTRANSFERASE 27 U/L (12-78); ALBUMIN 3.1 G/DL (3.4-5.0); ALBUMIN/GLOBULIN RATIO 0.9 (1.1-1.5); ALKALINE PHOSPHATASE 25 IU/L (46-116); ANION GAP 11 (8-16); ASPARTATE AMINO TRANSFERASE 15 U/L (10-37); BILIRUBIN,TOTAL 0.6 MG/DL (0.1-1.0); BLOOD UREA NITROGEN 11 MG/DL (7-18); BUN/CREATININE RATIO 17.2 (10.0-20.0); CALCIUM 9.2 MG/DL (8.5-10.1); CHLORIDE 103 MMOL/L (99-107); CREATININE 0.64 MG/DL (0.40-0.90); GLUCOSE 174 MG/DL (70-104); MAGNESIUM 1.8 MG/DL (1.5-2.4); POTASSIUM 3.9 MMOL/L (3.5-5.1); SODIUM 139 MMOL/L (135-145); TOTAL CARBON DIOXIDE 24.9 MMOL/L (24-32); TOTAL PROTEIN 6.6 G/DL (6.4-8.2); eCRCL 86 ML/MIN; eGFR > 90 ML/MIN
[2023-01-05] MEDS: K and/or MAG REPLACEMENT MC SCH ×2 (08:00→20:00)
[2023-01-05] MEDS: pantoprazole 40mg Tablet.DR PO SCH (08:36)
[2023-01-05] MEDS: HYDROcodone/acetaminophen 10/325mg tab PO PRN ×3 (08:37→22:29)
[2023-01-05] MEDS: docusate sod 100mg capsule PO SCH ×2 (08:37→20:45)
[2023-01-05] MEDS: enoxaparin 40mg/0.4ml syringe SUBCUT SCH (08:42)
[2023-01-05] MEDS: spironolactone 50 MG tablet PO SCH (08:44)
[2023-01-05] MEDS: insulin Lispro (HumaLOG) vial - multi-dose SQ SCH ×3 (08:44→19:28)
[2023-01-05 10:00] VITALS: BP 140/74; PULSE 99; RESP 13; TEMP 97.8; O2SAT 97
[2023-01-05] MEDS ORDERED: Tirzepatide (Mounjaro) 7.5 MG INJECTION SQ SCH (11:50)
[2023-01-05] MEDS: ondansetron/PF 4mg/2ml inj IV PRN (14:10)
--- NOTE | 2023-01-05 16:09 | NUR ---
Patient up walking the hallways with walker independently. Tolerating well. Initiated herself as well. Completed 300 ft.
[2023-01-05 18:00] VITALS: BP 134/69; PULSE 93; RESP 18; TEMP 97.5; O2SAT 97
--- NOTE | 2023-01-05 18:38 | NUR ---
Patient in room ORTHO 4014. I have received report from VIJAY GAMING RN AND EDWARD ERAZO and had the opportunity to ask questions and assume patient care.
[2023-01-05 20:00] VITALS: RESP 18; O2SAT 97
[2023-01-05] MEDS: atorvastatin 20mg tablet PO SCH (20:45)
[2023-01-05] MEDS: insulin glargine (Lantus) pen - multi-dose SQ SCH (20:52)
[2023-01-05 22:00] VITALS: BP 136/83; PULSE 100; RESP 16; TEMP 98; O2SAT 97
[2023-01-05] MEDS: temazepam 15mg capsule PO PRN (22:30)
[2023-01-06] MEDS: cephalexin 250mg capsule PO SCH ×2 (00:45→07:08)
[2023-01-06] MEDS: HYDROcodone/acetaminophen 10/325mg tab PO PRN ×2 (03:01→09:20)
[2023-01-06] MEDS: ondansetron/PF 4mg/2ml inj IV PRN (03:29)
[2023-01-06 06:00] VITALS: BP 119/67; PULSE 77; RESP 16; TEMP 97.6; O2SAT 97
--- NOTE | 2023-01-06 06:19 | NUR ---
Problems reprioritized. Patient report given, questions answered & plan of care reviewed with DANIEL AGUILAR.
[2023-01-06 06:44] LABS: ALANINE AMINOTRANSFERASE 23 U/L (12-78); ALBUMIN 3.3 G/DL (3.4-5.0); ALBUMIN/GLOBULIN RATIO 0.9 (1.1-1.5); ALKALINE PHOSPHATASE 29 IU/L (46-116); ANION GAP 9 (8-16); ASPARTATE AMINO TRANSFERASE 20 U/L (10-37); BILIRUBIN,TOTAL 0.6 MG/DL (0.1-1.0); BLOOD UREA NITROGEN 11 MG/DL (7-18); BUN/CREATININE RATIO 16.9 (10.0-20.0); CALCIUM 9.5 MG/DL (8.5-10.1); CHLORIDE 101 MMOL/L (99-107); CREATININE 0.65 MG/DL (0.40-0.90); GLUCOSE 195 MG/DL (70-104); MAGNESIUM 1.7 MG/DL (1.5-2.4); POTASSIUM 3.7 MMOL/L (3.5-5.1); SODIUM 137 MMOL/L (135-145); TOTAL CARBON DIOXIDE 27.2 MMOL/L (24-32); TOTAL PROTEIN 6.9 G/DL (6.4-8.2); eCRCL 84 ML/MIN; eGFR > 90 ML/MIN
[2023-01-06 06:47] LABS: BASOPHILS % (AUTO) 0.5 % (0-1); EOSINOPHILS # (AUTO) 0.1 X10'3 (0-0.9); EOSINOPHILS % (AUTO) 1.3 % (0-6); HEMATOCRIT 34.2 % (35.0-45.0); HEMOGLOBIN 11.6 g/dl (12.0-16.0); LYMPHOCYTES # (AUTO) 2.1 X10'3 (1.1-4.8); LYMPHOCYTES % (AUTO) 21.7 % (21-51); MEAN CORPUSCULAR HEMOGLOBIN 31.2 PG (27.0-31.0); MEAN CORPUSCULAR VOLUME 91.7 FL (78-98); MEAN PLATELET VOLUME 7.2 FL (7.4-10.4); MONOCYTES % (AUTO) 10.7 % (2-12); NEUTROPHILS # (AUTO) 6.4 X10'3 (1.8-7.7); NEUTROPHILS % (AUTO) 65.8 % (42-75); PLATELET COUNT 330 X10'3 (140-440); RED BLOOD COUNT 3.73 X10'6 (4.20-5.60); RED CELL DISTRIBUTION WIDTH 14.1 % (11.5-14.5); WHITE BLOOD COUNT 9.7 X10'3 (4.5-11.0)
[2023-01-06] MEDS: pantoprazole 40mg Tablet.DR PO SCH (07:08)
[2023-01-06] MEDS: docusate sod 100mg capsule PO SCH (07:08)
[2023-01-06] MEDS: spironolactone 50 MG tablet PO SCH (07:08)
[2023-01-06] MEDS: enoxaparin 40mg/0.4ml syringe SUBCUT SCH (07:08)
[2023-01-06 08:00] VITALS: RESP 16; O2SAT 94
[2023-01-06] MEDS: K and/or MAG REPLACEMENT MC SCH (08:00)
[2023-01-06] MEDS: lactose-reduced food (Ensure High Protein) 237ml bottle PO SCH ×4 (08:00→13:11)
[2023-01-06] MEDS: insulin Lispro (HumaLOG) vial - multi-dose SQ SCH ×2 (09:14→13:17)
[2023-01-06 10:00] VITALS: BP 115/62; PULSE 101; RESP 16; TEMP 98.2; O2SAT 94
[2023-01-06] MEDS ORDERED: aspirin/acetaminophen/caffeine tablet PO PRN (11:35)
[2023-01-06] MEDS ORDERED: proCHLORperazine 10 MG/2 ml inj IV PRN (11:45)
--- NOTE | 2023-01-06 16:00 | NUR ---
I have reviewed and agree with interventions, assessments, and documentation by More Waldrop LVN.
--- NOTE | 2023-01-06 16:55 | NUR ---
Patient discharged home with spouse via POV. All personal items sent with. PIV discontinued, tip of cannula in tact. Patient alert and appropriate at the time of discharge, will follow up with Dr. David on 01/09/23.
== END 2023-01-06 16:57 | disposition home health service (06) | DRG 948 ==
LOC: ER 18:39 → ED HOLD 01-02 08:04 → ORTHO 4S 01-02 12:19
PROVIDERS: ADMIT Family Medicine; ATTEND Family Medicine
DX: G89.18 Other acute postprocedural pain (principal); E78.00 Pure hypercholesterolemia, unspecified; E11.649 Type 2 diabetes mellitus with hypoglycemia without coma; Z96.653 Presence of artificial knee joint, bilateral; M25.562 Pain in left knee; K21.9 Gastro-esophageal reflux disease without esophagitis; T81.89XA Other complications of procedures, not elsewhere classified, initial encounter; Y83.1 Surgical operation with implant of artificial internal device as the cause of abnormal reaction of the patient, or of later complication, without mention of misadventure at the time of the procedure; M65.322 Trigger finger, left index finger; Z88.2 Allergy status to sulfonamides; Z90.710 Acquired absence of both cervix and uterus; Z90.49 Acquired absence of other specified parts of digestive tract; Z91.048 Other nonmedicinal substance allergy status; Z88.8 Allergy status to other drugs, medicaments and biological substances; Z79.899 Other long term (current) drug therapy; Y92.89 Other specified places as the place of occurrence of the external cause
CPT/HCPCS: 36415; 73701; 80053; 82948; 83036; 83735; 84132; 85008; 85025; 85379; 87081; 93971; 97110; 97116; 97161; 97530; 99285; A6253; A6449; G0378; J0780; J1650; J1815; J1885; J2270; J2405; J3490; J7030; Q9967

== ENCOUNTER 2023-04-22 12:34 | Outpatient (CLI) | payer BC ==
[~2023-04-22 12:34] MED LIST changes: +CEPH250T PO; +ENOX40SY7 SUBCUT; +HYDR-3973 PO
== END 2023-04-22 23:59 | disposition home or self-care (01) ==
LOC: RAD 12:34
PROVIDERS: ATTEND Orthopaedic Surgery
DX: S76.112A Strain of left quadriceps muscle, fascia and tendon, initial encounter (principal); Z98.890 Other specified postprocedural states; Z96.652 Presence of left artificial knee joint; W01.0XXA Fall on same level from slipping, tripping and stumbling without subsequent striking against object, initial encounter; Y93.89 Activity, other specified; Y92.89 Other specified places as the place of occurrence of the external cause; Y99.8 Other external cause status
CPT/HCPCS: 73721

== ENCOUNTER 2023-05-13 14:04 | Observation (INO) | payer BC ==
[2023-05-09 15:11] LABS: BASOPHILS % (AUTO) 0.5 % (0-1); EOSINOPHILS # (AUTO) 0.2 X10'3 (0-0.9); EOSINOPHILS % (AUTO) 1.8 % (0-6); LYMPHOCYTES # (AUTO) 2.2 X10'3 (1.1-4.8); LYMPHOCYTES % (AUTO) 24.7 % (21-51); MEAN CORPUSCULAR HEMOGLOBIN 29.4 PG (27.0-31.0); MEAN CORPUSCULAR HGB CONC 33.4 g/dL (33.0-36.5); MEAN CORPUSCULAR VOLUME 88.1 FL (78-98); MEAN PLATELET VOLUME 7.6 FL (7.4-10.4); MONOCYTES # (AUTO) 0.8 X10'3 (0-0.9); MONOCYTES % (AUTO) 9.2 % (2-12); NEUTROPHILS # (AUTO) 5.8 X10'3 (1.8-7.7); NEUTROPHILS % (AUTO) 63.8 % (42-75); PRE OP HEMATOCRIT 37.1 % (35.0-45.0); PRE OP HEMOGLOBIN 12.4 g/dL (12.0-16.0); PRE OP PLATELET COUNT 389 X10'3 (140-440); PRE OP WHITE BLOOD COUNT 9.1 10'3 (4.8-10.8); RED BLOOD COUNT 4.21 X10'6 (4.20-5.60); RED CELL DISTRIBUTION WIDTH 15.1 % (11.5-14.5)
[2023-05-09 15:26] LABS: ALBUMIN 3.6 G/DL (3.4-5.0); ALBUMIN/GLOBULIN RATIO 0.9 (1.1-1.5); ALKALINE PHOSPHATASE 26 IU/L (46-116); BLOOD UREA NITROGEN 14 MG/DL (7-18); BUN/CREATININE RATIO 16.3 (10.0-20.0); CALCIUM 9.3 MG/DL (8.5-10.1); CHLORIDE 100 MMOL/L (99-107); CREATININE 0.86 MG/DL (0.40-0.90); PRE OP ALT 20 U/L (30-65); PRE OP ANION GAP 11 (8-16); PRE OP AST 15 U/L (10-37); PRE OP BILIRUB, TOTAL 0.4 MG/DL (0.0-1.0); PRE OP GLUCOSE 181 MG/DL (70-104); PRE OP SODIUM 137 MMOL/L (135-145); TOTAL CARBON DIOXIDE 25.7 MMOL/L (24-32); TOTAL PROTEIN 7.6 G/DL (6.4-8.2); eGFR 68 ML/MIN
[~2023-05-13] VITALS: Ht 162.6 cm; Wt 72.0 kg
[2023-05-13] VITALS (19 sets, daily range): BP systolic 102–141; BP diastolic 60–91; PULSE 96–113; RESP 12–18; TEMP 97.8–98.3; O2SAT 93–100
[~2023-05-13 14:04] MED LIST changes: -CEPH250T PO; -ENOX40SY7 SUBCUT; -HYDR-3973 PO; -RISA150P SQ; +TIRZ10PE SQ; -TIRZ7.5P SQ; +cefazolin 2gm/D5W 100mL 100 ML IV ONE; +famotidine 20mg tablet PO ONE; +ringers solution, lacted 1,000 ML IV SCH; +tranexamic acid inj. 1,000 MG in normal saline IV soln 100ML IV ONE; +vancomycin 1,500 MG in NS 300ml IV soln IV ONE
[2023-05-13] MEDS ORDERED: vancomycin 1,000mg inj ONE (16:23)
[2023-05-13] MEDS ORDERED: desflurane 240ml liquid inh. IH ONE (16:55)
[2023-05-13] MEDS ORDERED: dexamethasone sod phosphate 4mg/ml inj. ONE (16:58)
[2023-05-13] MEDS ORDERED: propofol inj 20 ML IV ONE ×2 (16:58→17:32)
[2023-05-13] MEDS ORDERED: midazolam 1 mg/ML 2ml injection ONE (16:58)
[2023-05-13] MEDS ORDERED: ondansetron/PF 4mg/2ml inj ONE (16:58)
[2023-05-13] MEDS ORDERED: LIDOcaine 2% (20mg/ml) 5ml vial ONE (16:58)
[2023-05-13] MEDS ORDERED: fentaNYL/PF 50MCG/1 ML 2ML syringe ONE (16:58)
[2023-05-13] MEDS ORDERED: ROPIVAcaine 0.5% (5mg/ml) 30ml vial ONE (16:58)
[2023-05-13] MEDS ORDERED: acetaminophen 1,000mg/100ml IV 100 ML IV ONE (17:14)
[2023-05-13] MEDS ORDERED: proCHLORperazine 10 MG/2 ml inj IV PRN (17:35)
[2023-05-13] MEDS ORDERED: labetalol 20mg/4ml (5mg/ml) syringe IV PRN (17:35)
[2023-05-13] MEDS ORDERED: ringers solution, lacted 1,000 ML IV SCH (17:35)
[2023-05-13] MEDS ORDERED: proMETHazine 25mg rectal suppository RC PRN (17:35)
[2023-05-13] MEDS ORDERED: ondansetron/PF 4mg/2ml inj IV PRN (17:35)
[2023-05-13] MEDS ORDERED: hydrALAZINE 20mg/ml inj. IV PRN (17:35)
[2023-05-13] MEDS ORDERED: morphine 4 MG/ML inj SYRINge IV PRN (17:35)
[2023-05-13] MEDS ORDERED: fentaNYL/PF 50MCG/1 ML 2ML syringe IV PRN ×2 (17:35)
[2023-05-13] MEDS ORDERED: morphine 2 MG/ML inj. syringe IV PRN (17:35)
[2023-05-13] MEDS ORDERED: HYDROcodone/acetaminophen 5mg/325mg tablet PO PRN (19:30)
[2023-05-13] MEDS: normal saline 1000ml 1,000 ML IV SCH (20:12)
[2023-05-13] MEDS: insulin glargine (Lantus) pen - multi-dose SQ SCH ×2 (20:19→22:23)
[2023-05-13] MEDS ORDERED: ROSUVASTATIN CALCIUM 5 MG TABLET PO SCH (21:00)
[2023-05-13] MEDS: HYDROcodone/acetaminophen 10/325mg tab PO PRN (22:37)
[2023-05-13] MEDS ORDERED: Melatonin 3mg tablet PO ONE (22:40)
[2023-05-14 02:00] VITALS: BP 111/67; PULSE 114; RESP 15; TEMP 97.9; O2SAT 95
[2023-05-14] MEDS: HYDROcodone/acetaminophen 10/325mg tab PO PRN (04:09)
[2023-05-14 06:00] VITALS: BP 132/72; PULSE 116; RESP 14; TEMP 98.8; O2SAT 95
[2023-05-14] MEDS: normal saline 1000ml 1,000 ML IV SCH (06:00)
[2023-05-14 08:00] VITALS: RESP 14; O2SAT 97
[2023-05-14] MEDS ORDERED: pantoprazole 40mg Tablet.DR PO SCH (08:00)
[2023-05-14] MEDS ORDERED: enoxaparin 40mg/0.4ml syringe SUBCUT SCH (08:00)
[2023-05-14] MEDS ORDERED: spironolactone 50 MG tablet PO SCH (08:00)
[2023-05-14] MEDS ORDERED: GLYBURIDE 10 MG PO SCH (08:00)
[2023-05-14] MEDS ORDERED: traMADol 50MG tablet PO ONE (08:35)
[2023-05-14 08:49] VITALS: RESP 17
[2023-05-14] MEDS ORDERED: METFORMIN HCL 500 MG PO SCH (21:00)
[2023-05-14] MEDS ORDERED: Melatonin 3mg tablet PO SCH (21:00)
[2023-05-19] MEDS ORDERED: Tirzepatide (Mounjaro) 10 MG SQ SCH (19:05)
== END 2023-05-14 10:15 | disposition home or self-care (01) ==
LOC: PAS 14:04 → EDSTATUS 16:00 → ORTHO 4S 19:18
PROVIDERS: ADMIT Orthopaedic Surgery; ATTEND Orthopaedic Surgery
DX: S76.112A Strain of left quadriceps muscle, fascia and tendon, initial encounter (principal); E78.5 Hyperlipidemia, unspecified; E11.9 Type 2 diabetes mellitus without complications; Z96.659 Presence of unspecified artificial knee joint; Z79.899 Other long term (current) drug therapy; W19.XXXA Unspecified fall, initial encounter; Y93.89 Activity, other specified; Y92.89 Other specified places as the place of occurrence of the external cause; Y99.8 Other external cause status
CPT/HCPCS: 27385; 36415; 80053; 82948; 85025; 96365; 96372; 96375; 97116; 97161; 97530; G0378; J0131; J0690; J1100; J1650; J1815; J2250; J2270; J2405; J2704; J2795; J3010; J3370; J3490; J7030; J7120; A4215; A6258; A6449; A7000

== ENCOUNTER 2023-05-26 09:55 | Outpatient (CLI) | payer BC ==
[~2023-05-26 09:55] MED LIST changes: -cefazolin 2gm/D5W 100mL 100 ML IV ONE; -famotidine 20mg tablet PO ONE; -ringers solution, lacted 1,000 ML IV SCH; -tranexamic acid inj. 1,000 MG in normal saline IV soln 100ML IV ONE; -vancomycin 1,500 MG in NS 300ml IV soln IV ONE
== END 2023-05-26 23:59 | disposition home or self-care (01) ==
LOC: RAD 09:55
PROVIDERS: ATTEND Orthopaedic Surgery
DX: S76.112A Strain of left quadriceps muscle, fascia and tendon, initial encounter (principal); M79.89 Other specified soft tissue disorders; X58.XXXA Exposure to other specified factors, initial encounter; Y93.89 Activity, other specified; Y92.89 Other specified places as the place of occurrence of the external cause; Y99.8 Other external cause status
CPT/HCPCS: 73718

== ENCOUNTER 2024-03-24 08:27 | Emergency (ER) | payer BC ==
[~2024-03-24] VITALS: Ht 175.3 cm; Wt 69.0 kg
[~2024-03-24 08:27] MED LIST changes: -ROSU10TA28 PO; +ROSU10TA72 PO
[2024-03-24 08:37] VITALS: TEMP 98
[2024-03-24 09:56] LABS: BASOPHILS % (AUTO) 0.3 % (0-1); EOSINOPHILS % (AUTO) 0.3 % (0-6); HEMATOCRIT 42.1 % (35.0-45.0); HEMOGLOBIN 13.9 g/dl (12.0-16.0); LYMPHOCYTES # (AUTO) 0.7 X10'3 (1.1-4.8); LYMPHOCYTES % (AUTO) 6.6 % (21-51); MEAN CORPUSCULAR HEMOGLOBIN 30.2 PG (27.0-31.0); MEAN CORPUSCULAR HGB CONC 33.2 g/dL (33.0-36.5); MEAN CORPUSCULAR VOLUME 91.2 FL (78-98); MEAN PLATELET VOLUME 7.9 FL (7.4-10.4); MONOCYTES # (AUTO) 1.6 X10'3 (0-0.9); MONOCYTES % (AUTO) 14.6 % (2-12); NEUTROPHILS # (AUTO) 8.3 X10'3 (1.8-7.7); NEUTROPHILS % (AUTO) 78.2 % (42-75); PLATELET COUNT 169 X10'3 (140-440); RED BLOOD COUNT 4.61 X10'6 (4.20-5.60); RED CELL DISTRIBUTION WIDTH 13.9 % (11.5-14.5); WHITE BLOOD COUNT 10.7 X10'3 (4.5-11.0)
[2024-03-24] MEDS: normal saline 1000ml 1,000 ML IV ONE ×2 (10:29→11:40)
[2024-03-24 10:32] LABS: STREP A SCREEN POSITIVE (Neg)
[2024-03-24] MEDS ORDERED: penicillin G benzathine 1.2 million unit/2ml syringe IM ONE (10:35)
[2024-03-24] MEDS: PENICILLIN G BENZATHINE 2,400,000 UNIT/4 ML SYRINGE IM ONE (10:57)
[2024-03-24 11:08] LABS: ALANINE AMINOTRANSFERASE 26 U/L (12-78); ALBUMIN 3.7 G/DL (3.4-5.0); ALBUMIN/GLOBULIN RATIO 0.9 (1.1-1.5); ALKALINE PHOSPHATASE 27 IU/L (46-116); ANION GAP 12 (8-16); ASPARTATE AMINO TRANSFERASE 21 U/L (10-37); BILIRUBIN,TOTAL 0.9 MG/DL (0.1-1.0); BLOOD UREA NITROGEN 18 MG/DL (7-18); BUN/CREATININE RATIO 17.6 (10.0-20.0); CALCIUM 9.1 MG/DL (8.5-10.1); CHLORIDE 101 MMOL/L (99-107); CREATININE 1.02 MG/DL (0.40-0.90); GLUCOSE 178 MG/DL (70-104); POTASSIUM 4.4 MMOL/L (3.5-5.1); SODIUM 140 MMOL/L (135-145); TOTAL CARBON DIOXIDE 27.2 MMOL/L (24-32); TOTAL PROTEIN 7.6 G/DL (6.4-8.2); eCRCL 64 ML/MIN; eGFR 56 ML/MIN
[2024-03-24] MEDS ORDERED: ONDA-243 PO (11:18)
[2024-03-24 11:22] LABS: LIPASE 53 U/L (16-77)
[2024-03-24] MEDS: ondansetron/PF 4mg/2ml inj IV ONE (11:40)
[2024-03-24 11:48] LABS: ACETONE NEGATIVE (NEGATIVE)
[2024-03-24 12:00] LABS: BILIRUBIN,URINE MODERATE (Neg); CLARITY,URINE CLOUDY (Clear); COLOR,URINE YELLOW (Yellow); GLUCOSE, URINE NEGATIVE (Neg); KETONES,URINE 40 mg/dl (Neg); LEUKOCYTE ESTERASE ,URINE NEGATIVE (Neg); NITRITES, URINE NEGATIVE (Neg); OCCULT BLOOD,URINE NEGATIVE (Neg); PH,URINE 5.5 (4.8-8.0); PROTEIN,URINE 100 mg/dl (Neg); UROBILINOGEN,URINE 0.2 E.U/dL (0.2-1.0)
[2024-03-24 12:11] LABS: UA COLLECTION TYPE CLN CATCH MIDSTREAM
[2024-03-24 12:12] LABS: WBC,URINE 0-4 /HPF (0-4)
[2024-03-24 12:13] LABS: BACTERIA,URINE 1+ /HPF (Neg); CAL OXALATE CRYSTALS 3+ /HPF (NEGATIVE); HYALINE CASTS >30 /LPF (NEGATIVE); SQUAMOUS EPITHELIAL CELL,UR FEW /LPF (FEW)
[2024-03-24 12:31] VITALS: BP 105/70; PULSE 82; RESP 16; O2SAT 98
[2024-03-24] MEDS: acetaminophen 325mg tablet PO ONE (12:55)
== END 2024-03-24 13:11 | disposition home or self-care (01) ==
LOC: ER 08:27
DX: J02.0 Streptococcal pharyngitis (principal); R11.2 Nausea with vomiting, unspecified; E78.00 Pure hypercholesterolemia, unspecified; E11.9 Type 2 diabetes mellitus without complications; Z90.710 Acquired absence of both cervix and uterus; Z20.822 Contact with and (suspected) exposure to COVID-19; Z79.4 Long term (current) use of insulin; Z79.899 Other long term (current) drug therapy; Z98.890 Other specified postprocedural states; Z88.8 Allergy status to other drugs, medicaments and biological substances; Z88.2 Allergy status to sulfonamides
CPT/HCPCS: 36415; 71045; 80053; 81001; 82009; 83690; 84443; 85025; 87502; 87503; 87811; 87880; 93005; 96361; 96372; 96374; 99285; J0561; J2405; J7030

== ENCOUNTER 2024-04-20 06:29 | Outpatient (CLI) | payer BC ==
[~2024-04-20 06:29] MED LIST changes: +ONDA-243 PO
== END 2024-04-20 23:59 | disposition home or self-care (01) ==
LOC: MRI02 06:29
PROVIDERS: ATTEND Family Medicine
DX: S80.02XA Contusion of left knee, initial encounter (principal); M25.462 Effusion, left knee; M71.22 Synovial cyst of popliteal space [Baker], left knee; Z96.652 Presence of left artificial knee joint; X58.XXXA Exposure to other specified factors, initial encounter; Y93.89 Activity, other specified; Y92.89 Other specified places as the place of occurrence of the external cause; Y99.8 Other external cause status
CPT/HCPCS: 73721